=== PATIENT | male | born 1990 | race Two or more races ===

== ENCOUNTER 2021-04-26 21:49 | Emergency (ER) | payer BC ==
[2021-04-26] MEDS ORDERED: Albuterol/Ipratropium 3.0-0.5 MG/3 ML Neb Soln NEB ONE (22:03)
[2021-04-26] MEDS ORDERED: predniSONE 20 MG Tab PO ONE (22:03)
[2021-04-26 23:15] LABS: CORONAVIRUS COVID-19 NAA NEGATIVE (NEGATIVE)
[2021-04-26 23:56] LABS: INFLUENZA A NAA POSITIVE (NEGATIVE); INFLUENZA B NAA NEGATIVE (NEGATIVE)
== END 2021-04-27 00:10 | disposition home or self-care (01) ==
LOC: MW.ED 21:49
DX: J45.901 Unspecified asthma with (acute) exacerbation (principal); J10.1 Influenza due to other identified influenza virus with other respiratory manifestations; Z20.822 Contact with and (suspected) exposure to COVID-19
CPT/HCPCS: 0240U; 71045; 99285; A9270; 99283; J7620-GY

== ENCOUNTER 2021-06-06 06:10 | Emergency (ER) | payer BC ==
[2021-06-06] MEDS ORDERED: Cyclobenzaprine 10 MG Tab PO ONE (06:19)
[2021-06-06] MEDS ORDERED: Ibuprofen 600 MG Tab PO ONE (06:19)
[2021-06-06] MEDS ORDERED: predniSONE 20 MG Tab PO STA (06:20)
[2021-06-06] MEDS ORDERED: Dexamethasone 4 MG/ML SDV IVPUSH ONE (06:22)
[2021-06-06] MEDS ORDERED: Ketorolac 30 MG/ML SDV IVPUSH ONE (06:22)
[2021-06-06 07:11] LABS: BLOOD UREA NITROGEN,BUN 22 mg/dL (7.0-18.0); CHLORIDE,CL 102 mmol/L (98-107); GLUCOSE RANDOM 100 mg/dL (74-106); POTASSIUM,K 4.2 mmol/L (3.5-5.1); SODIUM,NA 139 mmol/L (136-148)
[2021-06-06] MEDS ORDERED: Sodium Chloride 0.9% 1,000 ML IV ONE (08:14)
== END 2021-06-06 09:34 | disposition home or self-care (01) ==
LOC: MW.ED 06:10
DX: J18.9 Pneumonia, unspecified organism (principal); D72.829 Elevated white blood cell count, unspecified; J45.909 Unspecified asthma, uncomplicated; Z88.0 Allergy status to penicillin
CPT/HCPCS: 36415; 71045; 80053; 81003; 84484; 85025; 85379; 96374; 96375; 99283; A9270; J1100; J1885; J7030

== ENCOUNTER 2021-06-07 16:06 | Emergency (ER) | payer BC ==
[2021-06-07] MEDS ORDERED: Sodium Chloride 0.9% 1,000 ML IV ONE (16:20)
[2021-06-07] MEDS ORDERED: Morphine 4 MG/ML VIAL IVPUSH ONE (16:22)
[2021-06-07 17:56] LABS: BLOOD UREA NITROGEN,BUN 20 mg/dL (7.0-18.0); CARBON DIOXIDE,CO2 28.9 mmol/L (21.0-32.0); CHLORIDE,CL 104 mmol/L (98-107); GLUCOSE RANDOM 101 mg/dL (74-106); POTASSIUM,K 3.5 mmol/L (3.5-5.1); SODIUM,NA 140 mmol/L (136-148)
[2021-06-07] MEDS ORDERED: Iopamidol 755 MG/ML 500 ML Multipack Bottle IVPUSH ONE (18:35)
== END 2021-06-07 18:19 | disposition home or self-care (01) ==
LOC: MW.ED 16:06
DX: C95.92 Leukemia, unspecified, in relapse (principal); J45.909 Unspecified asthma, uncomplicated; Z88.0 Allergy status to penicillin
CPT/HCPCS: 36415; 71260; 74177; 80053; 85025; 96374; 99284; J2270; J7030; Q9967

== ENCOUNTER 2021-06-11 20:05 | Emergency (ER) | payer BC ==
[2021-06-11] MEDS ORDERED: Ketorolac 60 MG/2 ML SDV IM ONE (21:13)
[2021-06-11] MEDS ORDERED: Orphenadrine 60 MG/2 ML Inj IM ONE (21:13)
== END 2021-06-11 22:10 | disposition home or self-care (01) ==
LOC: MW.ED 20:05
DX: M54.6 Pain in thoracic spine (principal); Z86.16 Personal history of COVID-19; Z88.0 Allergy status to penicillin; Z79.899 Other long term (current) drug therapy
CPT/HCPCS: 96372; 99283; J1885; J2360

== ENCOUNTER → 2021-06-15 | Emergency (ER) | payer BC ==
[~2021-06-15] MED LIST: HYDROmorphone 2 MG/ML Syringe IVPUSH ONE; HYDROmorphone 2 MG/ML Syringe IVPUSH STA; LORazepam 2 MG/ML SDV IVPUSH ONE; Ondansetron 4 MG Tab.DIS PO STA
[2021-06-15 07:03] LABS: BLOOD UREA NITROGEN,BUN 20 mg/dL (7.0-18.0); CARBON DIOXIDE,CO2 26.2 mmol/L (21.0-32.0); CHLORIDE,CL 99 mmol/L (98-107); GLUCOSE RANDOM 112 mg/dL (74-106); POTASSIUM,K 4.2 mmol/L (3.5-5.1); SODIUM,NA 136 mmol/L (136-148)
== END ==
LOC: MW.ED 05:33
DX: G95.20 Unspecified cord compression (principal); C95.92 Leukemia, unspecified, in relapse; C72.0 Malignant neoplasm of spinal cord; Z88.0 Allergy status to penicillin; Z79.899 Other long term (current) drug therapy; Z86.16 Personal history of COVID-19
CPT/HCPCS: 72141; 72146; 72148; 80048; 85025; 85610; 85730; 96374; 96375; 96376; 99284; A9270; J1170; J2060; 99285